=== PATIENT | male | born 1945 | race Caucasian/White ===

== ENCOUNTER 2019-11-19 10:21 | Emergency (ER) | payer MEDICARE, MEDICAID | END 2019-11-19 10:55 | disposition home or self-care (01) | LOC: BURERS 10:21 | DX: R05 Cough (principal); M19.90 Unspecified osteoarthritis, unspecified site; J44.9 Chronic obstructive pulmonary disease, unspecified; E11.9 Type 2 diabetes mellitus without complications; I10 Essential (primary) hypertension; D64.9 Anemia, unspecified; Z87.891 Personal history of nicotine dependence | CPT/HCPCS: 99283 ==